=== PATIENT | female | born 1980 | race African-American/Black ===

== ENCOUNTER 2023-12-26 11:09 | Outpatient (CLI) | payer OTHER | END 2023-12-26 11:10 | disposition home or self-care (01) | LOC: CSHULT 11:09 | PROVIDERS: ATTEND Otolaryngology Plastic Surgery within the Head & Neck | DX: E04.1 Nontoxic single thyroid nodule (principal); E04.2 Nontoxic multinodular goiter | CPT/HCPCS: 76536 ==